=== PATIENT | female | born 1975 ===

== ENCOUNTER 2022-03-08 09:02 | Inpatient (IN) | payer OTHER ==
[~2022-03-08] VITALS: Ht 170.2 cm; Wt 74.8 kg
[2022-03-13] MEDS ORDERED: HORIZANT300 MG PO (14:14)
[2022-03-13] MEDS ORDERED: PEPCID AC20 MG PO (14:14)
[2022-03-13] MEDS ORDERED: ULTRAM50 MG PO (14:14)
[2022-03-13] MEDS ORDERED: NEURONTIN600 MG PO (14:14)
== END 2022-03-13 14:22 | disposition home or self-care (01) | DRG 419 ==
LOC: ER 09:02 → MEDJ 15:38
PROVIDERS: Surgery; ADMIT Internal Medicine Geriatric Medicine; ATTEND Internal Medicine Geriatric Medicine
PROC: BF37ZZZ Magnetic Resonance Imaging (MRI) of Pancreas (ICD-10-PCS; 2022-03-08)
PROC: 02HV33Z Insertion of Infusion Device into Superior Vena Cava, Percutaneous Approach (ICD-10-PCS; 2022-03-09)
PROC: BF502Z0 Other Imaging of Bile Ducts using Fluorescing Agent, Intraoperative (ICD-10-PCS; 2022-03-12)
PROC: 0FT44ZZ Resection of Gallbladder, Percutaneous Endoscopic Approach (ICD-10-PCS; principal; 2022-03-12 07:00)
DX: K80.00 Calculus of gallbladder with acute cholecystitis without obstruction (principal); R10.11 Right upper quadrant pain; K21.9 Gastro-esophageal reflux disease without esophagitis; D72.828 Other elevated white blood cell count; E86.0 Dehydration; Z20.822 Contact with and (suspected) exposure to COVID-19